=== PATIENT | female | born 1960 | race Caucasian/White ===

== ENCOUNTER 2017-07-23 11:13 | Emergency (ER) | payer OTHER ==
[~2017-07-23] VITALS: Ht 165.1 cm; Wt 56.5 kg
[2017-07-23 11:14] VITALS: BP 129/85; PULSE 80; RESP 24; TEMP 98.6; O2SAT 96
--- NOTE | 2017-07-23 12:34 | PD ---
HPI Chief Complaint: GI Complaint Time Seen by Provider: 12:13 Travel History International Travel<30 days: No Contact w/Intl Traveler<30days: No Traveled to known affect area: No History of Present Illness HPI This is a 56-year-old female who presents to the emergency department with GERD. She says she struggled with this for years and she recently moved to the area. She says every morning she wakes up and vomits and has explosive diarrhea. She says this is been getting worse over the past week because she's run out of her medications. She denies any abdominal pain. She denies any fevers or chills. Her symptoms are constant, worse in the morning, and alleviated by antinausea an antidiarrheal medication. PFSH Past Medical History Narrative Medical gerd Social History Alcohol Use: Yes Tobacco Use: Yes Allergies-Medications (Allergen,Severity, Reaction): Coded Allergies: No Known Allergies (Unverified , 07/23/17) Review of Systems Except as stated in HPI: all other systems reviewed are Neg Physical Exam Narrative GENERAL:Well appearing, no acute distress SKIN: Focused skin assessment warm and dry. HEAD: Atraumatic. Normocephalic. EYES: Pupils equal and round. No injection or drainage. ENT: Moist mucous membranes NECK: Trachea midline. CARDIOVASCULAR: Regular rate and rhythm. No murmur appreciated. RESPIRATORY: Clear to auscultation. Breath sounds equal bilaterally. GASTROINTESTINAL: Abdomen soft, non-tender, nondistended. MUSCULOSKELETAL: No obvious deformities. NEUROLOGICAL: Awake and alert. No obvious cranial nerve deficits. Moving all extremities. PSYCHIATRIC: Appropriate mood and affect; insight and judgment normal. Data Data Last Documented VS Vital Signs Date Time Temp Pulse Resp B/P (MAP) Pulse Ox O2 Delivery O2 Flow Rate FiO2 07/23/17 11:14 98.6 80 24 129/85 (100) 96 Room Air MDM Medical Decision Making Medical Screen Exam Complete: Yes Emergency Medical Condition: Yes Interpretation(s) Afebrile, no tachycardia, normotensive Differential Diagnosis Gastritis, GERD, gastroparesis, dehydration Narrative Course This is a 56 year old female who presents to the emergency department for increasing symptoms of which she describes as GERD. She says she vomits every morning and she has trouble eating. She has a very benign exam and has a drink at bedside which she's been able to drink. I offered her an IV and labs but she declined and said she really was just hoping to have something to manage her symptoms until she can get into her primary care physician later this week. I recommended an antacid and Zofran and I agreed to refill her metoclopramide prescription. I don't think she has an acute surgical emergency and I think she is safe for discharge. Diagnosis Primary Impression: Vomiting Qualified Codes: R11.2 - Nausea with vomiting, unspecified Patient Instructions: General Instructions Additional Instructions: If you develop severe or worsening abdominal pain, fever>100.4, persistent vomiting or inability to eat or drink return to the emergency department immediately. Follow up with your primary care physician in 1-2 days for a check-up. Med/Other Pt SpecificInfo: Prescription(s) given Scripts Ranitidine (Ranitidine) 150 Mg Tab 150 MG PO BID for Heartburn Management, #60 TAB 0 Refills Prov: Bridget Menjivar MD 07/23/17 Metoclopramide (Metoclopramide) 10 Mg Tab 10 MG PO TIDAC Y for NAUSEA, #20 TAB 0 Refills Prov: Bridget Menjivar MD 07/23/17 Ondansetron Odt (Zofran Odt) 4 Mg Tab 4 MG SL Q6HR Y for Nausea/Vomiting, #15 TAB 0 Refills Prov: Bridget Menjivar MD 07/23/17 Disposition: 01 DISCHARGE HOME Condition: Stable Bridget Menjivar MD Jul 23, 2017 12:33
[2017-07-23] MEDS ORDERED: RANI150T PO (12:40)
[2017-07-23] MEDS ORDERED: METO10TA PO (12:40)
[2017-07-23] MEDS ORDERED: ZOFR4TAB3 SL (12:40)
== END 2017-07-23 12:55 | disposition home or self-care (01) ==
LOC: NEPD 11:13
DX: R11.2 Nausea with vomiting, unspecified (principal); R19.7 Diarrhea, unspecified; Z72.0 Tobacco use; Z87.19 Personal history of other diseases of the digestive system
CPT/HCPCS: 99284

== ENCOUNTER 2017-10-16 09:30 | Emergency (ER) | payer OTHER ==
[~2017-10-16] VITALS: Ht 165.1 cm; Wt 55.0 kg
[~2017-10-16 09:30] MED LIST: METO10TA PO; RANI150T PO; ZOFR4TAB3 SL
[2017-10-16 09:31] VITALS: BP 127/89; PULSE 105; RESP 20; TEMP 98.5; O2SAT 97
[2017-10-16] MEDS ORDERED: PRIL20TA2 PO (10:03)
[2017-10-16] MEDS ORDERED: ZOFR4TAB PO (10:03)
[2017-10-16] MEDS ORDERED: REGL10TA5 PO (10:03)
--- NOTE | 2017-10-16 10:07 | PD ---
HPI . Reflux Chief Complaint: Medication Refill Request Time Seen by Provider: 10:00 Travel History International Travel<30 days: No Contact w/Intl Traveler<30days: No Traveled to known affect area: No History of Present Illness HPI This patient presents requesting refills for her reflux medicines. She reports that she has recently moved from [place]. She states that she has been treated in the past with Zofran, Reglan and Zantac. She states that the Zantac doesn't really seem to help so she has not been taking that. She states that she's been out of her medications for about 30 days. She cannot eat due to nausea and vomiting. She reports an approximately 10 pound weight loss in the last month. She states that she does have an appointment to see someone locally on October 28 but is hoping to get some medication to get her through until then. PFSH Past Medical History Diminished Hearing: No GERD: Yes Immunizations Current: Yes Tetanus Vaccination: > 5 Years Influenza Vaccination: No ?: Not Tubal Ligation: Yes Past Surgical History Other Surgery: Yes (SINUSES X 2, BREAST AUGMENTATION) Social History Alcohol Use: Yes Tobacco Use: Yes (1/2 PPD) Substance Use: Yes Allergies-Medications (Allergen,Severity, Reaction): Coded Allergies: No Known Allergies (Unverified Adverse Reaction, Unknown, 10/16/17) Reported Meds & Prescriptions Reported Meds & Active Scripts Active Prilosec (Omeprazole Magnesium) 20 Mg Tab 20 Mg PO DAILY Reglan (Metoclopramide HCl) 10 Mg Tab 10 Mg PO QID Zofran (Ondansetron HCl) 4 Mg Tab 4 Mg PO Q6HR PRN Metoclopramide (Metoclopramide HCl) 10 Mg Tab 10 Mg PO TIDAC PRN Zofran Odt (Ondansetron Odt) 4 Mg Tab 4 Mg SL Q6HR PRN Review of Systems Except as stated in HPI: all other systems reviewed are Neg Gastrointestinal: Positive: Nausea, Vomiting, Abdominal Pain Physical Exam Narrative GENERAL: Thin woman who does not appear to be in any acute distress. SKIN: warm/dry. Good color and turgor. HEAD: Normocephalic. Atraumatic. EYES: Pupils equal and round. No scleral icterus. No injection or drainage. ENT: No nasal bleeding or discharge. Mucous membranes pink and moist. NECK: Trachea midline. Full range of motion without pain.. CARDIOVASCULAR: Regular rate and rhythm. RESPIRATORY: No accessory muscle use. Clear to auscultation. Breath sounds equal bilaterally. GASTROINTESTINAL: Abdomen soft. Nontender. Bowel sounds present. Nondistended. MUSCULOSKELETAL: No obvious deformities. NEUROLOGICAL: Awake and alert. No obvious cranial nerve deficits. Motor grossly within normal limits. Normal speech. PSYCHIATRIC: Appropriate mood and affect; insight and judgment normal. Data Data Last Documented VS Vital Signs Date Time Temp Pulse Resp B/P (MAP) Pulse Ox O2 Delivery O2 Flow Rate FiO2 10/16/17 10:01 10/16/17 09:31 98.5 105 20 97 Room Air Orders Orders Ed Discharge Order (10/16/17 10:03) MDM Medical Decision Making Medical Screen Exam Complete: Yes Emergency Medical Condition: Yes Differential Diagnosis Differential diagnosis of abdominal pain includes but is not limited to gastritis, pancreatitis, hepatitis, gastroenteritis, gallbladder disease, constipation, urinary retention, UTI, peptic ulcer disease, diverticulitis or appendicitis Narrative Course This patient presents complaining with epigastric pain and reflux associated with nausea and vomiting. This is a chronic problem for her. She has recently moved here and does not have a local doctor yet. She is out of her usual medications. I have asked her if she has ever tried a proton pump inhibitor she does not believe that she has. She is willing to give this a try. I will discharge her with prescriptions for Zofran, Reglan and Prilosec. She is to keep her appointment with her new doctor on October 28. Diagnosis Primary Impression: GERD (gastroesophageal reflux disease) Qualified Codes: K21.9 - Gastro-esophageal reflux disease without esophagitis Patient Instructions: General Instructions, Gastroesophageal Reflux Disease (ED ) Departure Forms: Tests/Procedures Scripts Omeprazole Magnesium (Prilosec) 20 Mg Tab 20 MG PO DAILY for acid, #30 Prov: Avis Fragoso MD 10/16/17 Metoclopramide (Reglan) 10 Mg Tab 10 MG PO QID, #120 TAB 0 Refills Prov: Avis Fragoso MD 10/16/17 Ondansetron (Zofran) 4 Mg Tab 4 MG PO Q6HR Y for NAUSEA OR VOMITING, #30 TAB 0 Refills Prov: Avis Fragoso MD 10/16/17 Disposition: 01 DISCHARGE HOME Condition: Stable Avis Fragoso MD Oct 16, 2017 10:07
== END 2017-10-16 10:04 | disposition home or self-care (01) ==
LOC: NEPK 09:30 → NETRI 10:04
DX: K21.9 Gastro-esophageal reflux disease without esophagitis (principal); R11.2 Nausea with vomiting, unspecified; F17.200 Nicotine dependence, unspecified, uncomplicated; Z79.899 Other long term (current) drug therapy
CPT/HCPCS: 99284

== ENCOUNTER 2017-11-26 12:54 | Emergency (ER) | payer OTHER ==
[~2017-11-26 12:54] MED LIST changes: +PRIL20TA2 PO; -RANI150T PO; +REGL10TA5 PO; +ZOFR4TAB PO
[2017-11-26 12:55] VITALS: BP 130/82; PULSE 104; RESP 18; TEMP 98.7; O2SAT 99
--- NOTE | 2017-11-26 13:23 | PD ---
HPI Chief Complaint: Head Injury Time Seen by Provider: 13:07 Travel History International Travel<30 days: No Contact w/Intl Traveler<30days: No Traveled to known affect area: No History of Present Illness HPI This patient complains of head injury. 3 days ago her head was struck on the left brow by a door. She's had some headache since. She says at times her thoughts are jumbled. No LOC. No neck pain no memory loss. Severity is mild to moderate. No alleviating factors. No exacerbating factors. Duration 3 days PFSH Past Medical History Diminished Hearing: No GERD: Yes Immunizations Current: Yes Tubal Ligation: Yes Past Surgical History Other Surgery: Yes (SINUSES X 2, BREAST AUGMENTATION) Social History Alcohol Use: Yes Tobacco Use: Yes (/2 PPD) Substance Use: No Allergies-Medications (Allergen,Severity, Reaction): Coded Allergies: No Known Allergies (Unverified Adverse Reaction, Unknown, 10/16/17) Reported Meds & Prescriptions Reported Meds & Active Scripts Active No Active Prescriptions or Reported Medications Review of Systems General / Constitutional: No: Fever Eyes: No: Visual changes HENT: Positive: Headaches Cardiovascular: No: Chest Pain or Discomfort Respiratory: No: Shortness of Breath Gastrointestinal: No: Abdominal Pain Genitourinary: No: Dysuria Musculoskeletal: No: Pain Skin: No Rash Neurologic: Positive: Headache, No: Weakness Psychiatric: No: Depression Endocrine: No: Polydipsia Hematologic/Lymphatic: No: Easy Bruising Physical Exam Narrative GENERAL: Well-nourished, well-developed patient in no apparent distress. SKIN: Focused skin assessment reveals no rash and nodules. Skin is Warm and dry. HEAD: Atraumatic. Normocephalic. EYES: Pupils equal and round. No scleral icterus. No injection or drainage. ENT: No nasal bleeding or discharge. Mucous membranes pink and moist. NECK: Trachea midline. No JVD. No midline tenderness CARDIOVASCULAR: Regular rate and rhythm. No murmur appreciated. RESPIRATORY: No accessory muscle use. Clear to auscultation. Breath sounds equal bilaterally. GASTROINTESTINAL: Abdomen soft, non-tender, nondistended. Hepatic and splenic margins not palpable. MUSCULOSKELETAL: No obvious deformities. No clubbing. No cyanosis. No edema. NEUROLOGICAL: Awake and alert. No obvious cranial nerve deficits. Motor grossly within normal limits. Normal speech. PSYCHIATRIC: Appropriate mood and affect; insight and judgment normal. Data Data Last Documented VS Vital Signs Date Time Temp Pulse Resp B/P (MAP) Pulse Ox O2 Delivery O2 Flow Rate FiO2 11/26/17 12:55 98.7 104 18 130/82 (98) 99 Room Air Orders Orders Ct Brain W/O Iv Contrast(Rout) (11/26/17 ) MDM Medical Decision Making Medical Screen Exam Complete: Yes Emergency Medical Condition: Yes Medical Record Reviewed: Yes Differential Diagnosis Concussion, postconcussive symptoms, cephalgia Narrative Course I have reviewed the patient's electronic medical record. This patient is neurologically intact. There are no objective findings. I've ordered brain CT given her symptomatology after injury Brain CT was ordered but the patient got very impatient and decided to not wait. She signed out AGAINST MEDICAL ADVICE. She was advised to wait here to get the scan but she refused. Diagnosis Primary Impression: Head injury due to trauma Qualified Codes: S09.90XA - Unspecified injury of head, initial encounter Additional Impression: Headache Qualified Codes: G44.319 - Acute post-traumatic headache, not intractable Scripts No Active Prescriptions or Reported Meds Disposition: 07 AGAINST MEDICAL ADVICE Ajith Danielle MD Nov 26, 2017 13:23
[2017-11-27] MEDS ORDERED: BACT800T5 PO (16:26)
== END 2017-11-26 15:47 | disposition left against medical advice (07) ==
LOC: NEPD 12:54
DX: S09.90XA Unspecified injury of head, initial encounter (principal); G44.319 Acute post-traumatic headache, not intractable; F17.200 Nicotine dependence, unspecified, uncomplicated; W22.8XXA Striking against or struck by other objects, initial encounter
CPT/HCPCS: 99284

== ENCOUNTER 2017-11-27 12:12 | Inpatient (IN) | payer OTHER ==
[~2017-11-27] VITALS: Ht 165.1 cm; Wt 57.6 kg
[2017-11-27 12:18] VITALS: BP 123/85; PULSE 84; RESP 16; TEMP 97.9; O2SAT 94
[2017-11-27] MEDS ORDERED: NALOXONE HCL 0.4 MG/ML AMP ONE (12:25)
[2017-11-27 12:27] VITALS: BP 125/89; PULSE 81; RESP 14; O2SAT 89
[2017-11-27] MEDS ORDERED: SODIUM CHLORIDE 0.9% FLUSH 10 ML FLUSH IVF PRN (12:30)
[2017-11-27] MEDS ORDERED: NALOXONE HCL 2 MG/2 ML VIAL IV PUSH ONE (12:30)
--- NOTE | 2017-11-27 12:42 | PD ---
HPI Chief Complaint: Psychiatric Symptoms Time Seen by Provider: 12:18 Travel History International Travel<30 days: No Contact w/Intl Traveler<30days: No Traveled to known affect area: No History of Present Illness HPI Patient comes emergency Department under [place] act by police for alleged suicide attempt. Patient states that she snorted what she thought was heroin after drinking vodka and wine today in an attempted to kill herself. Patient states that she is feeling depressed and suicidal secondary to not being able to get her son out of her house. Reports her son is 24 years old and was told she would have to have him evicted to get him out. Patient states that she hides in her bedroom with the doors locked most of the day as she is scared of her son. Patient reports that her son is also gave her the heroin. Patient reports she tried cutting her left wrist last night using a kitchen knife without success. Patient denies anything making symptoms better. Reports having her son lives with her makes her symptoms worse. Denies any pain anywhere or radiation of pain. Patient is uncertain of her last tetanus shot. Patient's only complaint currently is feeling short of breath. Denies any chest pain, fevers, nausea, vomiting, abdominal pain, auditory or visual hallucinations, or previous suicide attempts. PFSH Past Medical History Diabetes: No Diminished Hearing: No GERD: Yes Immunizations Current: Yes Tetanus Vaccination: > 5 Years Influenza Vaccination: No ?: Not Tubal Ligation: Yes Past Surgical History Other Surgery: Yes (SINUSES X 2, BREAST AUGMENTATION) Social History Alcohol Use: Yes Tobacco Use: Yes (1/2 PPD) Substance Use: Yes (HEROIN) Allergies-Medications (Allergen,Severity, Reaction): Coded Allergies: No Known Allergies (Unverified Adverse Reaction, Unknown, 11/27/17) Reported Meds & Prescriptions Reported Meds & Active Scripts Active Bactrim DS (Sulfamethoxazole-Trimethoprim) 800-160 Mg Tab 1 Tab PO BID Review of Systems Except as stated in HPI: all other systems reviewed are Neg Physical Exam Narrative GENERAL: Well-developed, well nourished, in no acute distress, and non-ill appearing. Sleepy but answering questions appropriately. SKIN: Focused skin assessment warm and dry. Superficial and not repairable self -inflicted abrasions noted on left wrist. HEAD: Atraumatic. Normocephalic. EYES: Pupils equal and round. EOMI. No scleral icterus. No injection or drainage. ENT: No nasal bleeding or discharge. Mucous membranes pink and moist. NECK: Trachea midline. No JVD. Supple. No nuclear rigidity. CARDIOVASCULAR: Regular rate and rhythm. No murmur appreciated. RESPIRATORY: No accessory muscle use. No respiratory distress. Clear to auscultation. Breath sounds equal bilaterally. GASTROINTESTINAL: Abdomen soft, non-tender, nondistended, and no guarding. Hepatic and splenic margins not palpable. Normal bowel sounds 4. No pulsatile mass. MUSCULOSKELETAL: No obvious deformities. No clubbing. No cyanosis. No edema. Full range of motion. NEUROLOGICAL: Awake and alert. No obvious cranial nerve deficits. Motor grossly within normal limits. Normal speech. PSYCHIATRIC: Appropriate mood and affect; insight and judgment normal. Data Data Last Documented VS Vital Signs Date Time Temp Pulse Resp B/P (MAP) Pulse Ox O2 Delivery O2 Flow Rate FiO2 11/27/17 13:41 89 16 105/65 (78) 97 Nasal Cannula 2.00 11/27/17 12:18 97.9 Orders Orders Complete Blood Count With Diff (11/27/17 12:23) Comprehensive Metabolic Panel (11/27/17 12:23) Prothrombin Time / Inr (Pt) (11/27/17 12:23) Act Partial Throm Time (Ptt) (11/27/17 12:23) Urinalysis - C+S If Indicated (11/27/17 12:23) Chest, Single Ap (11/27/17 12:23) Iv Access Insert/Monitor (11/27/17 12:23) Ecg Monitoring (11/27/17 12:23) Oximetry (11/27/17 12:23) Oxygen Administration (11/27/17 12:23) Psych Screen (11/27/17 12:23) Naloxone Inj (Narcan Inj) (11/27/17 12:30) Sodium Chloride 0.9% Flush (Ns Flush) (11/27/17 12:30) Drug Screen, Random Urine (11/27/17 12:23) Alcohol (Ethanol) (11/27/17 12:23) Salicylates (Aspirin) (11/27/17 12:23) Tylenol (Acetaminophen) (11/27/17 12:23) Naloxone Inj (Narcan Inj) (11/27/17 12:25) Wound Care (11/27/17 12:33) Tetanus/Diphtheria Tox Adult (Tetanus/Di (11/27/17 12:45) Sodium Chlor 0.9% 1000 Ml Inj (Ns 1000 M (11/27/17 13:30) Urine Culture (11/27/17 15:30) Sulfamet-Trimeth Ds 800-160 Mg (Bactrim (11/27/17 16:30) Labs Laboratory Tests Test 11/27/17 12:30 11/27/17 15:30 White Blood Count 6.6 TH/MM3 Red Blood Count 4.31 MIL/MM3 Hemoglobin 14.2 GM/DL Hematocrit 42.6 % Mean Corpuscular Volume 99.0 FL Mean Corpuscular Hemoglobin 33.1 PG Mean Corpuscular Hemoglobin Concent 33.4 % Red Cell Distribution Width 14.0 % Platelet Count 183 TH/MM3 Mean Platelet Volume 9.3 FL Neutrophils (%) (Auto) 38.6 % Lymphocytes (%) (Auto) 45.9 % Monocytes (%) (Auto) 11.2 % Eosinophils (%) (Auto) 3.7 % Basophils (%) (Auto) 0.6 % Neutrophils # (Auto) 2.6 TH/MM3 Lymphocytes # (Auto) 3.0 TH/MM3 Monocytes # (Auto) 0.7 TH/MM3 Eosinophils # (Auto) 0.2 TH/MM3 Basophils # (Auto) 0.0 TH/MM3 CBC Comment DIFF FINAL Differential Comment Prothrombin Time 10.1 SEC Prothromb Time International Ratio 1.0 RATIO Activated Partial Thromboplast Time 21.7 SEC Blood Urea Nitrogen 11 MG/DL Creatinine 0.48 MG/DL Random Glucose 98 MG/DL Total Protein 7.2 GM/DL Albumin 3.8 GM/DL Calcium Level 8.3 MG/DL Alkaline Phosphatase 85 U/L Aspartate Amino Transf (AST/SGOT) 25 U/L Alanine Aminotransferase (ALT/SGPT) 22 U/L Total Bilirubin 0.3 MG/DL Sodium Level 143 MEQ/L Potassium Level 3.9 MEQ/L Chloride Level 105 MEQ/L Carbon Dioxide Level 21.4 MEQ/L Anion Gap 17 MEQ/L Estimat Glomerular Filtration Rate 134 ML/MIN Salicylates Level 3.8 MG/DL Acetaminophen Level LESS THAN 2.0 MCG/ML Ethyl Alcohol Level 259 MG/DL Urine Color YELLOW Urine Turbidity HAZY Urine pH 6.0 Urine Specific [place] 1.020 Urine Protein TRACE mg/dL Urine Glucose (UA) NEG mg/dL Urine Ketones 10 mg/dL Urine Occult Blood NEG Urine Nitrite NEG Urine Bilirubin NEG Urine Urobilinogen LESS THAN 2.0 MG/DL Urine Leukocyte Esterase LARGE Urine RBC 1 /hpf Urine WBC 4 /hpf Urine Squamous Epithelial Cells 2 /hpf Urine Bacteria MOD /hpf Urine Hyaline Casts 1 /lpf Urine Granular Casts 6 /lpf Urine Mucus FEW /lpf Microscopic Urinalysis Comment CULTURE INDICATED Urine Opiates Screen POS Urine Barbiturates Screen NEG Urine Amphetamines Screen NEG Urine Benzodiazepines Screen NEG Urine Cocaine Screen NEG Urine Cannabinoids Screen NEG MDM Medical Decision Making Medical Screen Exam Complete: Yes Emergency Medical Condition: Yes Differential Diagnosis Intentional overdose, accidental overdose, suicidal, homicidal, depression, metabolic disturbance, pneumonia Narrative Course Patient was seen and examined. IV was established. Patient was placed on cardiac monitoring and O2 secondary to patient's O2 sat dropping. Patient was given Narcan IV, which causes patient to become fully awake and alert as well as alleviating her sensation of feeling short of breath. Initial laboratory radiological studies were ordered. Psych consult was placed as well. Discussed patient with Dr. Ghosh, who saw and evaluated the patient who is in agreement with plan of care. Patient was seen and examined. Labs were obtained and reviewed. Patient was monitored for 4 hours with no additional need for Narcan. Patient was started on Bactrim for UTI. Patient medically cleared for further treatment and evaluation by psych. Final disposition per psych. Diagnosis Primary Impression: Intentional heroin overdose Qualified Codes: T40.1X2A - Poisoning by heroin, intentional self-harm, initial encounter Additional Impressions: Alcohol intoxication Qualified Codes: F10.920 - Alcohol use, unspecified with intoxication, uncomplicated Suicidal overdose Qualified Codes: T50.902A - Poisoning by unspecified drugs, medicaments and biological substances, intentional self-harm, initial encounter Abrasion UTI (urinary tract infection) Qualified Codes: N39.0 - Urinary tract infection, site not specified Scripts Sulfamethoxazole-Trimethoprim (Bactrim DS) 800-160 Mg Tab 1 TAB PO BID for Infection, #14 TAB 0 Refills Prov: Howard Ghosh MD 11/27/17 Condition: Stable Paco Beckman Nov 27, 2017 12:42
[2017-11-27 12:45] LABS: AUTOMATED NEUTROPHIL # 2.6 TH/MM3 (1.8-7.7); BASOPHIL % 0.6 % (0.0-2.0); EOSINOPHIL # 0.2 TH/MM3 (0-0.4); EOSINOPHIL % 3.7 % (0.0-4.0); HEMATOCRIT 42.6 % (35.0-46.0); HEMOGLOBIN 14.2 GM/DL (11.6-15.3); LYMPH % 45.9 % (9.0-44.0); MEAN CORPUSCULAR HEMOGLOBIN 33.1 PG (27.0-34.0); MEAN CORPUSCULAR HGB CONC 33.4 % (32.0-36.0); MEAN PLATELET VOLUME 9.3 FL (7.0-11.0); MONO % 11.2 % (0.0-8.0); MONOCYTE # 0.7 TH/MM3 (0-0.9); NEUT % 38.6 % (16.0-70.0); PLATELET COUNT 183 TH/MM3 (150-450); RED BLOOD COUNT 4.31 MIL/MM3 (4.00-5.30); WHITE BLOOD COUNT 6.6 TH/MM3 (4.0-11.0)
[2017-11-27] MEDS ORDERED: TETANUS/DIPHTHERIA TOXOID ADULT 0.5 ML VIAL IM ONE (12:45)
[2017-11-27 12:55] LABS: PROTHROMBIN TIME - PATIENT 10.1 SEC (9.8-11.6)
[2017-11-27 13:08] LABS: ACETAMINOPHEN LESS THAN 2.0 MCG/ML (10.0-30.0); ALBUMIN 3.8 GM/DL (3.4-5.0); ALT (GPT) 22 U/L (10-53); AST (GOT) 25 U/L (15-37); BICARBONATE 21.4 MEQ/L (21.0-32.0); BLOOD UREA NITROGEN 11 MG/DL (7-18); CALCIUM 8.3 MG/DL (8.5-10.1); CHLORIDE 105 MEQ/L (98-107); CREATININE 0.48 MG/DL (0.50-1.00); GLOMERULAR FILTRATION RATE 134 ML/MIN (>89); GLUCOSE,RANDOM 98 MG/DL (74-106); SODIUM (NA) 143 MEQ/L (136-145)
[2017-11-27 13:10] LABS: ALKALINE PHOSPHATASE 85 U/L (45-117); TOTAL BILIRUBIN ADULT 0.3 MG/DL (0.2-1.0); TOTAL PROTEIN 7.2 GM/DL (6.4-8.2)
--- NOTE | 2017-11-27 13:18 | RADRPT ---
EXAM DATE/TIME: 11/27/2017 12:41 [facility] COMPARISON: No previous studies available for comparison. INDICATIONS : Shortness of breath began today, no chest pain MEDICAL HISTORY : None. SURGICAL HISTORY : None. ENCOUNTER: Initial ACUITY: 1 day PAIN SCORE: 0/10 LOCATION: Bilateral chest FINDINGS: A single view of the chest demonstrates the lungs to be symmetrically aerated without evidence of mas s, infiltrate or effusion. The cardiomediastinal contours are unremarkable. Osseous structures are intact. CONCLUSION: No acute disease. Amrit Chirinos MD on November 27, 2017 at 13:17 Board Certified Radiologist. This report was verified electronically.
[2017-11-27] MEDS ORDERED: SODIUM CHLOR 0.9% 1000 ML INJ 1,000 ML IV ONE (13:30)
[2017-11-27 13:41] VITALS: BP 105/65; PULSE 89; RESP 16; O2SAT 97
--- NOTE | 2017-11-27 14:20 | PD ---
Data Data Last Documented VS Vital Signs Date Time Temp Pulse Resp B/P (MAP) Pulse Ox O2 Delivery O2 Flow Rate FiO2 11/27/17 13:41 89 16 105/65 (78) 97 Nasal Cannula 2.00 11/27/17 12:18 97.9 Orders Orders Complete Blood Count With Diff (11/27/17 12:23) Comprehensive Metabolic Panel (11/27/17 12:23) Prothrombin Time / Inr (Pt) (11/27/17 12:23) Act Partial Throm Time (Ptt) (11/27/17 12:23) Urinalysis - C+S If Indicated (11/27/17 12:23) Chest, Single Ap (11/27/17 12:23) Iv Access Insert/Monitor (11/27/17 12:23) Ecg Monitoring (11/27/17 12:23) Oximetry (11/27/17 12:23) Oxygen Administration (11/27/17 12:23) Psych Screen (11/27/17 12:23) Naloxone Inj (Narcan Inj) (11/27/17 12:30) Sodium Chloride 0.9% Flush (Ns Flush) (11/27/17 12:30) Drug Screen, Random Urine (11/27/17 12:23) Alcohol (Ethanol) (11/27/17 12:23) Salicylates (Aspirin) (11/27/17 12:23) Tylenol (Acetaminophen) (11/27/17 12:23) Naloxone Inj (Narcan Inj) (11/27/17 12:25) Wound Care (11/27/17 12:33) Tetanus/Diphtheria Tox Adult (Tetanus/Di (11/27/17 12:45) Sodium Chlor 0.9% 1000 Ml Inj (Ns 1000 M (11/27/17 13:30) Urine Culture (11/27/17 15:30) Sulfamet-Trimeth Ds 800-160 Mg (Bactrim (11/27/17 16:30) Labs Laboratory Tests Test 11/27/17 12:30 11/27/17 15:30 White Blood Count 6.6 TH/MM3 Red Blood Count 4.31 MIL/MM3 Hemoglobin 14.2 GM/DL Hematocrit 42.6 % Mean Corpuscular Volume 99.0 FL Mean Corpuscular Hemoglobin 33.1 PG Mean Corpuscular Hemoglobin Concent 33.4 % Red Cell Distribution Width 14.0 % Platelet Count 183 TH/MM3 Mean Platelet Volume 9.3 FL Neutrophils (%) (Auto) 38.6 % Lymphocytes (%) (Auto) 45.9 % Monocytes (%) (Auto) 11.2 % Eosinophils (%) (Auto) 3.7 % Basophils (%) (Auto) 0.6 % Neutrophils # (Auto) 2.6 TH/MM3 Lymphocytes # (Auto) 3.0 TH/MM3 Monocytes # (Auto) 0.7 TH/MM3 Eosinophils # (Auto) 0.2 TH/MM3 Basophils # (Auto) 0.0 TH/MM3 CBC Comment DIFF FINAL Differential Comment Prothrombin Time 10.1 SEC Prothromb Time International Ratio 1.0 RATIO Activated Partial Thromboplast Time 21.7 SEC Blood Urea Nitrogen 11 MG/DL Creatinine 0.48 MG/DL Random Glucose 98 MG/DL Total Protein 7.2 GM/DL Albumin 3.8 GM/DL Calcium Level 8.3 MG/DL Alkaline Phosphatase 85 U/L Aspartate Amino Transf (AST/SGOT) 25 U/L Alanine Aminotransferase (ALT/SGPT) 22 U/L Total Bilirubin 0.3 MG/DL Sodium Level 143 MEQ/L Potassium Level 3.9 MEQ/L Chloride Level 105 MEQ/L Carbon Dioxide Level 21.4 MEQ/L Anion Gap 17 MEQ/L Estimat Glomerular Filtration Rate 134 ML/MIN Salicylates Level 3.8 MG/DL Acetaminophen Level LESS THAN 2.0 MCG/ML Ethyl Alcohol Level 259 MG/DL Urine Color YELLOW Urine Turbidity HAZY Urine pH 6.0 Urine Specific [place] 1.020 Urine Protein TRACE mg/dL Urine Glucose (UA) NEG mg/dL Urine Ketones 10 mg/dL Urine Occult Blood NEG Urine Nitrite NEG Urine Bilirubin NEG Urine Urobilinogen LESS THAN 2.0 MG/DL Urine Leukocyte Esterase LARGE Urine RBC 1 /hpf Urine WBC 4 /hpf Urine Squamous Epithelial Cells 2 /hpf Urine Bacteria MOD /hpf Urine Hyaline Casts 1 /lpf Urine Granular Casts 6 /lpf Urine Mucus FEW /lpf Microscopic Urinalysis Comment CULTURE INDICATED Urine Opiates Screen POS Urine Barbiturates Screen NEG Urine Amphetamines Screen NEG Urine Benzodiazepines Screen NEG Urine Cocaine Screen NEG Urine Cannabinoids Screen NEG MDM Medical Record Reviewed: Yes Supervised Visit with KATTY: Yes Narrative Course I, Dr. Ghosh, have reviewed the advance practice practitioner's documentation and am in agreement, met with the patient face to face, made the diagnosis, and the medical decision making was done by me. *My assessment and Findings: CBC & BMP Diagram 11/27/17 12:30 Total Protein 7.2, Albumin 3.8, Calcium Level 8.3 L, Alkaline Phosphatase 85, Aspartate Amino Transf (AST/SGOT) 25, Alanine Aminotransferase (ALT/SGPT) 22, Total Bilirubin 0.3 Patient has been monitored for 4 hours and is hemodynamically normal with no evidence of opioid toxidrome for the last 90 minutes or so. Patient is medically clear for psychiatry evaluation. Scripts Sulfamethoxazole-Trimethoprim (Bactrim DS) 800-160 Mg Tab 1 TAB PO BID for Infection, #14 TAB 0 Refills Prov: Howard Ghosh MD 11/27/17 Howard Ghosh MD Nov 27, 2017 14:20
[2017-11-27 16:21] LABS: BACTERIA, URINE MOD /hpf; BILIRUBIN, URINE NEG (NEG); BLOOD, URINE NEG (NEG); GLUCOSE,URINE NEG (NEG); HYALINE CAST, URINE 1 /lpf (RARE); KETONE, URINE 10 mg/dL (NEG); MUCUS URINE FEW /lpf (OCC); NITRITE,URINE NEG (NEG); SQUAMOUS EPITHELIAL CELL URINE 2 /hpf (0-5); URINE COLOR YELLOW (YELLW/STRAW); URINE LEUKOCYTE ESTERASE LARGE (NEG)
[2017-11-27] MEDS ORDERED: BACT800T5 PO (16:26)
[2017-11-27] MEDS ORDERED: SULFAMETHOXAZOLE-TRIMETHOPRIM DS 800-160 MG TAB PO ONE (16:30)
[2017-11-27 17:31] VITALS: BP 123/63; PULSE 75; RESP 18; TEMP 97.7; O2SAT 96
[2017-11-27] MEDS: LORazepam 2 MG TAB PO PRN ×2 (20:13→21:43)
[2017-11-27] MEDS ORDERED: FLUMAZENIL 0.5 MG/5 ML VIAL IV PUSH PRN (20:15)
[2017-11-27] MEDS ORDERED: LORazepam 2 MG/ML VIAL IV PUSH PRN ×4 (20:15)
[2017-11-27 21:30] VITALS: BP 128/74; PULSE 90; RESP 17; TEMP 98; O2SAT 94
[2017-11-27] MEDS ORDERED: ALUMINUM/MAGNESIUM/SIMETH 30 ML CUP PO PRN (21:45)
[2017-11-27] MEDS ORDERED: hydrOXYzine HCL 50 MG TAB PO PRN (21:45)
[2017-11-27] MEDS ORDERED: MAGNESIUM HYDROXIDE SUSP 30 ML CUP PO PRN (21:45)
[2017-11-27] MEDS: ACETAMINOPHEN 325 MG TAB PO PRN (23:32)
[2017-11-27] MEDS: LORazepam 1 MG TAB PO PRN (23:32)
[2017-11-28 05:43] VITALS: BP 134/76; PULSE 86; RESP 18; TEMP 98.4; O2SAT 95
[2017-11-28 06:22] LABS: BICARBONATE 25.9 MEQ/L (21.0-32.0); BLOOD UREA NITROGEN 7 MG/DL (7-18); CALCIUM 8.1 MG/DL (8.5-10.1); CHLORIDE 102 MEQ/L (98-107); CHOLESTEROL 162 MG/DL (120-200); CREATININE 0.41 MG/DL (0.50-1.00); GLOMERULAR FILTRATION RATE 160 ML/MIN (>89); GLUCOSE,RANDOM 80 MG/DL (74-106); SODIUM (NA) 136 MEQ/L (136-145)
[2017-11-28 06:25] LABS: CHOLESTEROL/ HDL RATIO 1.74 RATIO; HDL CHOLESTEROL 92.6 MG/DL (40.0-60.0); LDL CHOLESTEROL 57 MG/DL (0-99); TRIGLYCERIDES 61 MG/DL (42-150)
[2017-11-28] MEDS: LORazepam 1 MG TAB PO PRN (09:26)
[2017-11-28] MEDS ORDERED: RANI150T PO (10:04)
[2017-11-28] MEDS: PANTOPRAZOLE SOD 20 MG DELAYED RELEASE TAB PO SCH (12:56)
[2017-11-28] MEDS: SERTRALINE HCL 50 MG TAB PO SCH (12:56)
[2017-11-28] MEDS: NICOTINE 21 MG/24 HR PATCH T-DERMAL SCH (13:07)
[2017-11-28] MEDS: SULFAMETHOXAZOLE-TRIMETHOPRIM DS 800-160 MG TAB PO SCH ×2 (13:13→20:29)
[2017-11-28] MEDS ORDERED: METOCLOPRAMIDE HCL 10 MG TAB PO PRN (13:45)
--- NOTE | 2017-11-28 15:48 | HHI.HP ---
Provisional Diagnosis Admission Date Nov 27, 2017 at 21:29 [place] I. Adjustment disorder with depressed mood Certification of Person's Competence To Provide Express and Informed Consent I have personally examined Sushant Khoury , a person being served at [facility] on, Nov 28, 2017 15:37. Express and informed consent means consent voluntarily given in writing, by a competent person, after sufficient explanation and disclosure of the subject matter involved to enable the person to make a knowing and willful decision without any element of force, fraud, deceit, duress, or other form of constraint or coercion. This person is 18 years of age or older, is not now known to be incompetent to consent to treatment with a guardian advocate, and does not have a health care surrogate or proxy currently making medical treatment decisions. I have found this person to be one of the following: [x] Competent to provide express and informed consent, as defined above, for voluntary admission to this facility and is competent to provide express and informed consent for treatment. He/she has the consistent capacity to make well reasoned, willful, and knowing decisions concerning his or her medical or mental health treatment. The person fully and consistently understands the purpose of the admission for examination/placement and is fully capable of personally exercising all rights assured [place] [] Incompetent to provide express and informed consent to voluntary admission, and this is incompetent to provide express and informed consent to treatment. The person must be transferred to involuntary status and a petition for a guardian advocate filed with the Circuit Court. [] Refusing to provide express and informed consent to voluntary admission but is competent to provide express and informed consent for treatment. The person must be discharged or transferred to involuntary status. Form shall be completed within 24 hours of a person's arrival at the receiving facility and filed in the clinical record of each person: 1. Admitted on a voluntary basis 2. Permitted to provide express and informed consent to his/her own treatment 3. Allowed to transfer from involuntary to voluntary status 4. Prior to permitting a person to consent to his or her own treatment after having been previously found incompetent to consent to treatment. History of Present Illness Capacity: Has Capacity HPI Patient is a 57-year-old woman, , domiciled with son, recently unemployed, with past psychiatric history of depression, no prior psychiatric hospitalizations, prior suicide attempt or self-injurious behavior, with alcohol use disorder with history of daily drinking since the age of [age] years old, who was brought in under Lafleur act for recent suicide attempt via cutting wrists with a knife and using heroin along with alcohol use in the context of worsening depression and recent psychosocial stressors. Patient was found sitting in hospital bed, cooperative with interview. Patient states that she has been under a lot of stress recently have included losing her job recently after calling in sick several times, having relationship discord with her son who is currently living with her and is refusing to leave her home, financial difficulties and continued alcohol use. Patient reports having decreased sleep lately, with urges and appetite, energy or concentration but reports feeling depressed for the past couple of weeks along with feeling helpless. Patient denies feeling helpless but also is having feelings of guilt "what I make my father to go through". She reports having had suicidal ideation recently reported that a few days ago she had tried to cut herself with a knife on her left wrist and ended up aborting the suicide and taxing her father when she had been trying to do. She also mentions that prior to her hospitalization she had used heroin for the first time along with alcohol use and attempt to end her life. Patient also reports having difficulty with her son which she states she is mostly at home drunk and is refusing to leave her home. Currently she states feeling "confused and scared", denies any suicidal ideations at this time denies any HI, AVH or delusions. Family psychiatric history: Sister with anxiety, no suicides in the family Past psychiatric history: Reports previous psychiatric diagnoses of depression, no prior psychiatric hospitalizations, suicide attempts or self-injurious behavior. Patient denies any history of abuse. Patient reports previous medication trials include Zoloft in the past couple of years last time use was more than a year ago. Substance use history: Alcohol use since age of [age] years old, drinking daily more than one bottle of wine last time she drank was prior hospitalizations which she drank on. Patient reports having previous rehabilitation programs 2-1 /2 years ago as well as prior detox. Patient reports having used heroin for the first time prior to her admission this time. Patient denies use of any other illicit drugs. Past medical history,: Denies Allergies: NKDA Social history: having 2 adult children, domiciled with son, reports having lost her job recently, highest education is 12th grade. No history, no access to firearms. No specific denominational affiliation. Legal history: Reports being arrested for battery 1 week ago. Review of Systems Except as stated in HPI: all other systems reviewed are Neg Past Psych History Psychological trauma history Denies Violence risk - others (6 mos) Low Violence risk - self (6 mos) Elevated due to recent suicide attempts, worsening depression and alcohol use disorder Substance Abuse History Drugs/Alcohol past 12 months Alcohol use since age of [age] years old, drinking daily more than one bottle of wine last time she drank was prior hospitalizations which she drank on. Patient reports having previous rehabilitation programs 2-1/2 years ago as well as prior detox. Patient reports having used heroin for the first time prior to her admission this time. Patient denies use of any other illicit drugs. Past Family Social History Coded Allergies: No Known Allergies (Unverified Adverse Reaction, Unknown, 11/27/17) Active Scripts Sulfamethoxazole-Trimethoprim (Bactrim DS) 800-160 Mg Tab, 1 TAB PO BID for Infection, #14 TAB 0 Refills Prov:Howard Ghosh MD 11/27/17 Reported Medications Ranitidine (Ranitidine) 150 Mg Tab, 150 MG PO BID for Heartburn Management, #60 TAB 0 Refills 11/28/17 Discontinued Scripts Omeprazole Magnesium (Prilosec) 20 Mg Tab, 20 MG PO DAILY for acid, #30 Prov:Avis Fragoso MD 10/16/17 Metoclopramide (Reglan) 10 Mg Tab, 10 MG PO QID, #120 TAB 0 Refills Prov:Avis Fragoso MD 10/16/17 Ondansetron (Zofran) 4 Mg Tab, 4 MG PO Q6HR Y for NAUSEA OR VOMITING, #30 TAB 0 Refills Prov:Avis Fragoso MD 10/16/17 Metoclopramide (Metoclopramide) 10 Mg Tab, 10 MG PO TIDAC Y for NAUSEA, #20 TAB 0 Refills Prov:Bridget Menjivar MD 07/23/17 Ondansetron Odt (Zofran Odt) 4 Mg Tab, 4 MG SL Q6HR Y for Nausea/Vomiting, #15 TAB 0 Refills Prov:Bridget Menjivar MD 07/23/17 Current Medications Medications (Trade) Dose Ordered Sig/Eloisa Route Start Time Stop Time Status Last Admin (NS Flush) 2 ml UNSCH PRN IVF 11/27/17 12:30 (Romazicon Inj) 0.2 mg Q1M PRN IV PUSH 11/27/17 20:15 (Ativan) 1 mg Q4H PRN PO 11/27/17 20:15 11/28/17 09:26 (Ativan Inj) 1 mg Q4H PRN IV PUSH 11/27/17 20:15 (Ativan) 2 mg Q2H PRN PO 11/27/17 20:15 11/27/17 21:43 (Ativan Inj) 2 mg Q2H PRN IV PUSH 11/27/17 20:15 (Ativan Inj) 2 mg Q1H PRN IV PUSH 11/27/17 20:15 (Ativan Inj) 2 mg Q15M PRN IV PUSH 11/27/17 20:15 (Atarax) 50 mg Q6H PRN PO 11/27/17 21:45 (Desyrel) 50 mg HS PRN PO 11/27/17 21:45 (Tylenol) 650 mg Q4H PRN PO 11/27/17 21:45 11/27/17 23:32 (Milk Of Magnesia Liq) 30 ml DAILY PRN PO 11/27/17 21:45 (Mag-Al Plus Susp Liq) 30 ml Q6H PRN PO 11/27/17 21:45 (Habitrol 21 Mg Patch.24 Hr) 1 patch DAILY T-DERMAL 11/28/17 09:00 11/28/17 13:07 Miscellaneous Information 1 HS T-DERMAL 11/28/17 21:00 (Zoloft) 50 mg DAILY PO 11/28/17 11:00 11/28/17 12:56 (Protonix) 20 mg DAILY PO 11/28/17 11:15 11/28/17 12:56 (Bactrim Ds 800-160 Mg) 1 tab BID PO 11/28/17 11:15 11/28/17 13:13 (Zofran Odt) 4 mg Q6H PRN PO 11/28/17 13:45 (Reglan) 10 mg ACHS PRN PO 11/28/17 13:45 Family Psych History Sister with anxiety, no suicides in the family Social History having 2 adult children, domiciled with son, reports having lost her job recently, highest education is 12th grade. No history, no access to firearms. No specific denominational affiliation. Legal history: Reports being arrested for battery 1 week ago. Patient's Strengths (min. 2) Verbal and communicative Physical Exam Patient not noted to be in acute distress, no gross motor abnormalities, no tremor, signs of withdrawal, or EPS, no noted psychomotor retardation or agitation. Vital Signs Vital Signs Date Time Temp Pulse Resp B/P (MAP) Pulse Ox O2 Delivery O2 Flow Rate FiO2 11/28/17 05:43 98.4 86 18 134/76 (95) 95 11/27/17 17:31 Room Air 11/27/17 13:41 2.00 I/O 11/28/17 11/28/17 11/29/17 08:00 16:00 00:00 Intake Total 0 ml Balance 0 ml Lab Results Labs reviewed Test 11/28/17 04:35 Blood Urea Nitrogen 7 MG/DL Creatinine 0.41 MG/DL Random Glucose 80 MG/DL Calcium Level 8.1 MG/DL Sodium Level 136 MEQ/L Potassium Level 3.7 MEQ/L Chloride Level 102 MEQ/L Carbon Dioxide Level 25.9 MEQ/L Anion Gap 8 MEQ/L Estimat Glomerular Filtration Rate 160 ML/MIN Triglycerides Level 61 MG/DL Cholesterol Level 162 MG/DL LDL Cholesterol 57 MG/DL HDL Cholesterol 92.6 MG/DL Cholesterol/HDL Ratio 1.74 RATIO Date/Time Source Procedure Growth Status 11/27/17 15:30 Urine Random Urine Urine Culture - Preliminary IMMATURE GROWTH - REINCUBATE Resulted Mental Status Examination Appearance: Disheveled Consciousness: Alert Orientation: Person, Place, Date/Time Motor Activity: Normal gait Speech: Unremarkable Language: Adequate Fund of Knowledge: Adequate Attention and Concentration: Adequate Memory: Unremarkable Mood: Sad, Anxious Affect: Sad, Anxious Thought Process & Associations: Linear Thought Content: Appropriate Hallucination Type: None Delusion Type: None Suicidal Ideation: Yes Suicidal Plan: Yes Suicidal Intention: Yes Homicidal Ideation: No Homicidal Plan: No Homicidal Intention: No Insight: Fair Judgment: Impulsive Assessment & Plan Problem List: (1) Adjustment disorder with depressed mood ICD Codes: F43.21 - Adjustment disorder with depressed mood (2) Alcohol use disorder ICD Codes: F10.99 - Alcohol use, unspecified with unspecified alcohol-induced disorder Assessment & Plan Estimated LOS: 5-7 days. Patient is a 57-year-old woman who carries a diagnosis of depression, alcohol use disorder, with recent worsening depressive symptoms along with previous suicide attempts recently was brought in by her under Lafleur act for the same in the context of psychosocial stressors. We'll start CIWA protocol for withdrawal. Start sertraline 50 mg by mouth daily with upper titration as needed for depression. Consult with hospitalist pending. Recommendations as per primary medical team. Collateral information pending. Discharge planning in progress patient at this time will sign voluntary admission Discharge Planning A to return back to her residence when psychiatrically stable Gamaliel Castro MD Nov 28, 2017 15:48
[2017-11-28 16:03] LABS: HEMOGLOBIN A1C 5.7 % (4.3-6.0)
[2017-11-28 18:00] VITALS: BP 120/69; PULSE 71; RESP 16; TEMP 97.9; O2SAT 96
--- NOTE | 2017-11-28 20:18 | PD.CONS ---
HPI Service [facility] Consult Requested By Psych Reason for Consult UTI and Alcoholism Primary Care Physician Unknown Diagnoses: History of Present Illness 57F with h/o depression and alcoholism was admitted under Lafleur Act for worsening of depression and multiple stressors. She was found on routine labs to have a UTI, and admits that she has felt queezy lately, but denies obvious dysuria. She is not having any signs of alcohol withdrawal today. Review of Systems Constitutional: DENIES: Diaphoretic episodes, Fatigue, Fever Respiratory: DENIES: Apneas, Cough Gastrointestinal: DENIES: Constipation, Diarrhea, Nausea, Vomiting Genitourinary: COMPLAINS OF: Urinary frequency, DENIES: Urinary incontinence, Hematuria, Dysuria Musculoskeletal: DENIES: Joint pain, Muscle aches, Stiffness, Joint Swelling Neurologic: DENIES: Abnormal gait, Headache, Seizures Psychiatric: COMPLAINS OF: Depression, DENIES: Anxiety, Confusion Past Family Social History Allergies: Coded Allergies: No Known Allergies (Unverified Adverse Reaction, Unknown, 11/27/17) Social History alcoholism and tobacco abuse Physical Exam Vital Signs Vital Signs Date Time Temp Pulse Resp B/P (MAP) Pulse Ox O2 Delivery O2 Flow Rate FiO2 11/28/17 18:00 97.9 71 16 120/69 (86) 96 11/28/17 05:43 98.4 86 18 134/76 (95) 95 11/27/17 21:44 11/27/17 21:30 98.0 90 17 128/74 (92) 94 Physical Exam GENERAL: This is a well-nourished, well-developed patient, in no apparent distress. SKIN: No rashes, ecchymoses or lesions. Cool and dry. HEAD: Atraumatic. Normocephalic. No temporal or scalp tenderness. EYES: Pupils equal round and reactive. Extraocular motions intact. No scleral icterus. No injection or drainage. ENT: Nose without bleeding, purulent drainage or septal hematoma. Throat without erythema, tonsillar hypertrophy or exudate. Uvula midline. Airway patent. NECK: Trachea midline. No JVD or lymphadenopathy. Supple, nontender, no meningeal signs. CARDIOVASCULAR: Regular rate and rhythm without murmurs, gallops, or rubs. RESPIRATORY: Clear to auscultation. Breath sounds equal bilaterally. No wheezes , rales, or rhonchi. GASTROINTESTINAL: Abdomen soft, non-tender, nondistended. No hepato-splenomegaly , or palpable masses. No guarding. MUSCULOSKELETAL: Extremities without clubbing, cyanosis, or edema. No joint tenderness, effusion, or edema noted. No calf tenderness. Negative Homans sign bilaterally. NEUROLOGICAL: Awake and alert. Cranial nerves II through XII intact. Motor and sensory grossly within normal limits. Five out of 5 muscle strength in all muscle groups. Normal speech. Laboratory Laboratory Tests Test 11/28/17 04:35 Blood Urea Nitrogen 7 Creatinine 0.41 Random Glucose 80 Calcium Level 8.1 Sodium Level 136 Potassium Level 3.7 Chloride Level 102 Carbon Dioxide Level 25.9 Anion Gap 8 Estimat Glomerular Filtration Rate 160 Hemoglobin A1c 5.7 Triglycerides Level 61 Cholesterol Level 162 LDL Cholesterol 57 HDL Cholesterol 92.6 Cholesterol/HDL Ratio 1.74 Date/Time Source Procedure Growth Status 11/27/17 15:30 Urine Random Urine Urine Culture - Preliminary IMMATURE GROWTH - REINCUBATE Resulted Result Diagram: 11/27/17 1230 11/28/17 0435 Imaging Last Impressions Chest X-Ray 11/27/17 1223 Signed Impressions: Service Date/Time: October 12:41 - CONCLUSION: No acute disease. Amrit Chirinos MD Assessment and Plan Problem List: (1) UTI (urinary tract infection) ICD Code: N39.0 - Urinary tract infection, site not specified Status: Acute (2) Alcohol use disorder ICD Code: F10.99 - Alcohol use, unspecified with unspecified alcohol-induced disorder Assessment and Plan Depression Main reason for admission Managed by Dr. Castro Will follow for medical reasons Urinary tract infection Start on Bactrim DS, 5-7 days Alcoholism No sign of withdrawal currently Will follow daily and monitor for any changes h/o GERD Protonix as prophylaxis h/o slow GI motility syndrome She requested Reglan and Zofran prn (home meds) Problem Qualifiers (1) UTI (urinary tract infection): Qualified Codes: N39.0 - Urinary tract infection, site not specified Evangelist Funes MD Nov 28, 2017 20:18
[2017-11-28] MEDS: ACETAMINOPHEN 325 MG TAB PO PRN (20:29)
[2017-11-28] MEDS: REMOVE OLD NICOTINE PATCH T-DERMAL SCH (20:30)
[2017-11-29] MEDS: ACETAMINOPHEN 325 MG TAB PO PRN ×2 (01:06→21:14)
[2017-11-29 06:00] VITALS: BP 156/90; PULSE 82; RESP 16; TEMP 98.1; O2SAT 98
[2017-11-29] MEDS: SERTRALINE HCL 50 MG TAB PO SCH (08:29)
[2017-11-29] MEDS: NICOTINE 21 MG/24 HR PATCH T-DERMAL SCH (08:29)
[2017-11-29] MEDS: PANTOPRAZOLE SOD 20 MG DELAYED RELEASE TAB PO SCH (08:29)
[2017-11-29] MEDS: ONDANSETRON ODT 4 MG TAB PO PRN (08:29)
[2017-11-29] MEDS: SULFAMETHOXAZOLE-TRIMETHOPRIM DS 800-160 MG TAB PO SCH ×2 (08:29→21:14)
--- NOTE | 2017-11-29 13:33 | HHI.PR ---
Subjective Remarks Follow-up visit polysubstance abuse, suicidal ideation, urinary tract infection. Patient seen and examined today lying in bed. Reports she is doing better. Urgency and dysuria has improved significantly. Denies fevers or chills, nausea, vomiting, diarrhea. Objective Vitals Vital Signs Date Time Temp Pulse Resp B/P (MAP) Pulse Ox O2 Delivery O2 Flow Rate FiO2 11/29/17 06:00 98.1 82 16 156/90 (112) 98 11/28/17 18:00 97.9 71 16 120/69 (86) 96 I/O 11/28/17 11/28/17 11/28/17 11/29/17 11/29/17 11/29/17 07:00 15:00 23:00 07:00 15:00 23:00 Intake Total 0 ml 240 ml Balance 0 ml 240 ml Intake Oral 0 ml 240 ml # Voids 1 Result Diagram: 11/27/17 1230 11/28/17 0435 Imaging Last Impressions Chest X-Ray 11/27/17 1223 Signed Impressions: Service Date/Time: October 12:41 - CONCLUSION: No acute disease. Amrit Chirinos MD Objective Remarks GENERAL: This is a well-nourished, well-developed patient, in no apparent distress. SKIN: Warm and dry. HEENT: Normocephalic. Pupils equal round and reactive. Nose without bleeding. Airway patent. NECK: Trachea midline. No JVD. Supple. CARDIOVASCULAR: Regular rate and rhythm without murmurs, gallops, or rubs. RESPIRATORY: Clear to auscultation. Breath sounds equal bilaterally. No wheezes , rales, or rhonchi. GASTROINTESTINAL: Abdomen soft, non-tender, nondistended. Bowel Sounds normoactive x4. MUSCULOSKELETAL: Extremities without clubbing, cyanosis, or edema. NEUROLOGICAL: Awake and alert. Oriented to place, person. Moves all extremities. Normal speech. A/P Problem List: (1) UTI (urinary tract infection) ICD Code: N39.0 - Urinary tract infection, site not specified Status: Acute (2) Alcohol use disorder ICD Code: F10.99 - Alcohol use, unspecified with unspecified alcohol-induced disorder Assessment and Plan Patient is a 57-year-old female who came into the hospital under Lafleur act for suicidal attempt. Patient is admitted to medical psych unit for further evaluation. Consulted for medical management. Suicidal attempt, depression - Managed by psychiatry team Urinary tract infection - Patient started on Bactrim. - States improvement with urgency Polysubstance abuse - [facility] protocol - Pantoprazole, add folic acid, multivitamin, thiamin DVT prop ambulatory. Problem Qualifiers (1) UTI (urinary tract infection): Qualified Codes: N39.0 - Urinary tract infection, site not specified Julián Canseco [facility] Nov 29, 2017 13:33
[2017-11-29 18:00] VITALS: BP 123/78; PULSE 77; RESP 17; TEMP 98.1; O2SAT 97
--- NOTE | 2017-11-29 20:07 | HHI.PYPN ---
Subjective Remarks Pt seen and discussed with staff. She remains depressed but states that she feels mood is starting to improve and she has not had SI thoughts this afternoon. She is tolerating medication without side effects. No SI/HI Mental Status Examination Appearance: Disheveled Consciousness: Alert Orientation: Person, Place, Date/Time Motor Activity: Normal gait Speech: Unremarkable Language: Adequate Fund of Knowledge: Adequate Attention and Concentration: Adequate Memory: Unremarkable Mood: Sad, Anxious Affect: Sad, Anxious Thought Process & Associations: Linear Thought Content: Appropriate Hallucination Type: None Delusion Type: None Suicidal Ideation: Yes (decreaesed) Suicidal Plan: No Suicidal Intention: No Homicidal Ideation: No Homicidal Plan: No Homicidal Intention: No Insight: Fair Judgment: Impulsive Results Labs Date/Time Source Procedure Growth Status 11/27/17 15:30 Urine Random Urine Urine Culture - Final 50-100,000 CFU/ML MIXED FARZAD... Complete Vitals/IOs Vital Signs Date Time Temp Pulse Resp B/P (MAP) Pulse Ox O2 Delivery O2 Flow Rate FiO2 11/29/17 18:00 98.1 77 17 123/78 (93) 97 11/27/17 17:31 Room Air 11/27/17 13:41 2.00 Intake and Output 11/29/17 11/29/17 11/30/17 08:00 16:00 00:00 Intake Total 480 ml 120 ml Balance 480 ml 120 ml Assessment & Plan Problem List: (1) Adjustment disorder with depressed mood ICD Codes: F43.21 - Adjustment disorder with depressed mood (2) Alcohol use disorder ICD Codes: F10.99 - Alcohol use, unspecified with unspecified alcohol-induced disorder Assessment & Plan Pt improving. Continue current tx plan. Estimated LOS: days Justification for Cont. Inpt. impairments in safety Macarena Jamil MD Nov 29, 2017 20:07
[2017-11-29] MEDS: REMOVE OLD NICOTINE PATCH T-DERMAL SCH (21:00)
[2017-11-30 06:00] VITALS: BP 119/74; PULSE 74; RESP 16; TEMP 97.8; O2SAT 96
[2017-11-30] MEDS: ONDANSETRON ODT 4 MG TAB PO PRN (06:29)
[2017-11-30] MEDS: SULFAMETHOXAZOLE-TRIMETHOPRIM DS 800-160 MG TAB PO SCH ×2 (08:36→20:50)
[2017-11-30] MEDS: THIAMINE HCL 100 MG TAB PO SCH (08:36)
[2017-11-30] MEDS: PANTOPRAZOLE SOD 20 MG DELAYED RELEASE TAB PO SCH (08:36)
[2017-11-30] MEDS: FOLIC ACID 1 MG TAB PO SCH (08:36)
[2017-11-30] MEDS: SERTRALINE HCL 50 MG TAB PO SCH (08:36)
[2017-11-30] MEDS: NICOTINE 21 MG/24 HR PATCH T-DERMAL SCH (08:37)
--- NOTE | 2017-11-30 12:22 | HHI.PYPN ---
Subjective Remarks Pt seen and discussed with staff. She reports that mood is improved and denies SI/HI. No medication side effects. She is engaging in future planning. Mental Status Examination Appearance: Disheveled Consciousness: Alert Orientation: Person, Place, Date/Time Motor Activity: Normal gait Speech: Unremarkable Language: Adequate Fund of Knowledge: Adequate Attention and Concentration: Adequate Memory: Unremarkable Mood: Anxious Affect: Anxious Thought Process & Associations: Linear Thought Content: Appropriate Hallucination Type: None Delusion Type: None Suicidal Ideation: No Suicidal Plan: No Suicidal Intention: No Homicidal Ideation: No Homicidal Plan: No Homicidal Intention: No Insight: Fair Judgment: Impulsive Results Labs Date/Time Source Procedure Growth Status 11/27/17 15:30 Urine Random Urine Urine Culture - Final 50-100,000 CFU/ML MIXED FARZAD... Complete Vitals/IOs Vital Signs Date Time Temp Pulse Resp B/P (MAP) Pulse Ox O2 Delivery O2 Flow Rate FiO2 11/30/17 06:00 97.8 74 16 119/74 (89) 96 11/27/17 17:31 Room Air 11/27/17 13:41 2.00 Intake and Output 11/30/17 11/30/17 12/01/17 08:00 16:00 00:00 Intake Total 0 ml 360 ml Balance 0 ml 360 ml Assessment & Plan Problem List: (1) Adjustment disorder with depressed mood ICD Codes: F43.21 - Adjustment disorder with depressed mood (2) Alcohol use disorder ICD Codes: F10.99 - Alcohol use, unspecified with unspecified alcohol-induced disorder Assessment & Plan PT improving. Continue current tx plan. Estimated LOS: days Justification for Cont. Inpt. risk of decompensation Macarena Jamil MD Nov 30, 2017 12:22
[2017-11-30] MEDS: ACETAMINOPHEN 325 MG TAB PO PRN ×2 (13:10→20:51)
[2017-11-30] MEDS: PHENAZOPYRIDINE HCL 100 MG TAB PO SCH ×2 (14:00→21:16)
--- NOTE | 2017-11-30 14:00 | HHI.PR ---
Subjective Remarks Follow-up visit polysubstance abuse, suicidal ideation, urinary tract infection. Patient seen and examined today lying in bed. Reports that these have urgency but dysuria is improved. Slight discomfort postvoid. Denies SOB/ dyspnea. Denies chest pain, palpitations, headaches, dizziness. Denies fevers, chills, n/v/d. Reports constipation. Objective Vitals Vital Signs Date Time Temp Pulse Resp B/P (MAP) Pulse Ox O2 Delivery O2 Flow Rate FiO2 11/30/17 06:00 97.8 74 16 119/74 (89) 96 11/29/17 18:00 98.1 77 17 123/78 (93) 97 I/O 11/29/17 11/29/17 11/29/17 11/30/17 11/30/17 11/30/17 07:00 15:00 23:00 07:00 15:00 23:00 Intake Total 480 ml 360 ml 0 ml 360 ml Balance 480 ml 360 ml 0 ml 360 ml Intake Oral 480 ml 360 ml 0 ml 360 ml # Voids 1 5 1 0 Result Diagram: 11/27/17 1230 11/28/17 0435 Imaging Last Impressions Chest X-Ray 11/27/17 1223 Signed Impressions: Service Date/Time: October 12:41 - CONCLUSION: No acute disease. Amrit Chirinos MD Objective Remarks GENERAL: This is a well-nourished, well-developed patient, in no apparent distress. SKIN: Warm and dry. HEENT: Normocephalic. Pupils equal round and reactive. Nose without bleeding. Airway patent. NECK: Trachea midline. No JVD. Supple. CARDIOVASCULAR: Regular rate and rhythm without murmurs, gallops, or rubs. RESPIRATORY: Clear to auscultation. Breath sounds equal bilaterally. No wheezes , rales, or rhonchi. GASTROINTESTINAL: Abdomen soft, non-tender, nondistended. Bowel Sounds normoactive x4. MUSCULOSKELETAL: Extremities without clubbing, cyanosis, or edema. NEUROLOGICAL: Awake and alert. Oriented to place, person. Moves all extremities. Normal speech. A/P Problem List: (1) UTI (urinary tract infection) ICD Code: N39.0 - Urinary tract infection, site not specified Status: Acute (2) Alcohol use disorder ICD Code: F10.99 - Alcohol use, unspecified with unspecified alcohol-induced disorder Assessment and Plan Patient is a 57-year-old female who came into the hospital under Lafleur act for suicidal attempt. Patient is admitted to medical psych unit for further evaluation. Consulted for medical management. Suicidal attempt, depression - Managed by psychiatry team Urinary tract infection - Continue Bactrim. - Start Pyridium 2 days - Encourage by mouth fluid hydration Polysubstance abuse - [facility] protocol - Pantoprazole, add folic acid, multivitamin, thiamine Constipation - MOM Nicolasa-Colace when necessary DVT prop ambulatory. Problem Qualifiers (1) UTI (urinary tract infection): Qualified Codes: N39.0 - Urinary tract infection, site not specified Julián Canseco Nov 30, 2017 14:00
[2017-11-30] MEDS ORDERED: DOCUSATE SODIUM 50 MG/SENNA 8.6 MG TAB PO PRN (14:30)
[2017-11-30 18:29] VITALS: BP 114/60; PULSE 65; RESP 16; TEMP 98.3; O2SAT 97
[2017-11-30] MEDS: REMOVE OLD NICOTINE PATCH T-DERMAL SCH (21:00)
[2017-12-01] MEDS: PHENAZOPYRIDINE HCL 100 MG TAB PO SCH ×3 (06:26→22:01)
[2017-12-01 06:32] VITALS: BP 106/70; PULSE 86; RESP 16; TEMP 97.8; O2SAT 97
[2017-12-01] MEDS: ACETAMINOPHEN 325 MG TAB PO PRN ×2 (06:42→22:06)
[2017-12-01] MEDS: PANTOPRAZOLE SOD 20 MG DELAYED RELEASE TAB PO SCH (08:30)
[2017-12-01] MEDS: THIAMINE HCL 100 MG TAB PO SCH (08:30)
[2017-12-01] MEDS: SERTRALINE HCL 50 MG TAB PO SCH (08:30)
[2017-12-01] MEDS: SULFAMETHOXAZOLE-TRIMETHOPRIM DS 800-160 MG TAB PO SCH ×2 (08:30→22:02)
[2017-12-01] MEDS: FOLIC ACID 1 MG TAB PO SCH (08:30)
[2017-12-01] MEDS: NICOTINE 21 MG/24 HR PATCH T-DERMAL SCH (08:30)
--- NOTE | 2017-12-01 08:47 | HHI.PR ---
Subjective Remarks Follow-up visit of 57-year-old female currently and medical psych unit with history of polysubstance abuse, and suicidal ideation. Medical team following patient due to urinary tract infection. Patient seen and examined sitting in her bed with nurse at bedside. She reports that she has increased her fluid intake and continues to have frequency along with the constant urge to urinate. Patient does urinate she does report an adequate amount of urine with voiding , denies dysuria, hematuria, urinary incontinence. She denies any suprapubic pain, urine leakage with sneezing, coughing, or laughter. She denies any fevers , chills, nausea, vomiting, or diarrhea. She reports that the Pyridium has not decreased her urinary frequency. Objective Vitals Vital Signs Date Time Temp Pulse Resp B/P (MAP) Pulse Ox O2 Delivery O2 Flow Rate FiO2 12/01/17 06:32 97.8 86 16 106/70 (82) 97 11/30/17 18:29 98.3 65 16 114/60 (78) 97 I/O 11/30/17 11/30/17 11/30/17 12/01/17 12/01/17 12/01/17 07:00 15:00 23:00 07:00 15:00 23:00 Intake Total 0 ml 360 ml 240 ml 240 ml Output Total 3 ml Balance 0 ml 360 ml 240 ml 237 ml Intake Oral 0 ml 360 ml 240 ml 240 ml Output Urine Total 3 ml # Voids 0 1 0 Result Diagram: 11/27/17 1230 11/28/17 0435 Imaging Last Impressions Chest X-Ray 11/27/17 1223 Signed Impressions: Service Date/Time: October 12:41 - CONCLUSION: No acute disease. Amrit Chirinos MD Objective Remarks GENERAL: This is a well-nourished, well-developed patient, in no apparent distress. SKIN: Warm and dry. HEENT: Normocephalic. Pupils equal round and reactive. Nose without bleeding. Airway patent. NECK: Trachea midline. CARDIOVASCULAR: Regular rate and rhythm without murmurs, gallops, or rubs. RESPIRATORY: Clear to auscultation. Breath sounds equal bilaterally. No wheezes , rales, or rhonchi. GASTROINTESTINAL: Abdomen soft, non-tender, nondistended, negative suprapubic tenderness with palpation. Bowel Sounds normoactive x4. MUSCULOSKELETAL: Extremities without clubbing, cyanosis, or edema. NEUROLOGICAL: Awake and alert. Oriented to place, person. Moves all extremities. Normal speech. A/P Problem List: (1) UTI (urinary tract infection) ICD Code: N39.0 - Urinary tract infection, site not specified Status: Acute (2) Alcohol use disorder ICD Code: F10.99 - Alcohol use, unspecified with unspecified alcohol-induced disorder Assessment and Plan Patient is a 57-year-old female who came into the hospital under Lafleur act for suicidal attempt. Patient is admitted to medical psych unit for further evaluation. Consulted for medical management. Suicidal attempt, depression - Managed by psychiatry team Urinary tract infection - UA positive with culture and sensitivity showing likely contaminated. Patient started on Bactrim on 11/28 due to symptoms. - Continue to have frequency. - Suspect frequency might be secondary to increase fluid intake, discussed with patient to drink regular amounts of fluids today to see how she does. - Post void bladder US done showing 44mls, no urinary retention to explain urgency. - Recheck tomorrow ?OAB consider oxybutynin if not improved. Polysubstance abuse - [facility] protocol - Pantoprazole, add folic acid, multivitamin, thiamin DVT prop ambulatory. Problem Qualifiers (1) UTI (urinary tract infection): Qualified Codes: N39.0 - Urinary tract infection, site not specified Prateek Rivera Dec 01, 2017 08:47
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
[2017-12-01] MEDS: hydrOXYzine HCL 25 MG TAB PO SCH ×2 (12:00→22:02)
[2017-12-01 18:00] VITALS: BP 109/65; PULSE 72; RESP 16; TEMP 98.5; O2SAT 95
[2017-12-01] MEDS: REMOVE OLD NICOTINE PATCH T-DERMAL SCH (21:00)
[2017-12-01] MEDS: traZODone HCL 50 MG TAB PO PRN (22:02)
[2017-12-02] MEDS: hydrOXYzine HCL 25 MG TAB PO SCH ×3 (04:00→21:12)
[2017-12-02] MEDS: PHENAZOPYRIDINE HCL 100 MG TAB PO SCH (05:59)
[2017-12-02 06:08] VITALS: BP 113/71; PULSE 82; RESP 18; TEMP 97.4; O2SAT 96
--- NOTE | 2017-12-02 08:20 | HHI.PR ---
Subjective Remarks Follow-up visit on UTI, patient reports that since yesterday when she has been drinking her normal amount of fluids her frequency has improved. Denies fever chills, dysuria, hematuria, incontinence. She is eating and drinking without any issues denies any nausea, vomiting, diarrhea. Patient states she would like to be discharged to a center where she received treatment for at least 30 days, she will be speaking to case management regarding this. Objective Vitals Vital Signs Date Time Temp Pulse Resp B/P (MAP) Pulse Ox O2 Delivery O2 Flow Rate FiO2 12/02/17 06:08 97.4 82 18 113/71 (85) 96 12/01/17 18:00 98.5 72 16 109/65 (80) 95 I/O 12/01/17 12/01/17 12/01/17 12/02/17 12/02/17 12/02/17 07:00 15:00 23:00 07:00 15:00 23:00 Intake Total 240 ml 240 ml 1960 ml Output Total 3 ml Balance 237 ml 240 ml 1960 ml Intake Oral 240 ml 240 ml 1960 ml Output Urine Total 3 ml # Voids 0 4 1 Result Diagram: 11/28/17 0435 Imaging Last Impressions Chest X-Ray 11/27/17 1223 Signed Impressions: Service Date/Time: October 12:41 - CONCLUSION: No acute disease. Amrit Chirinos MD Objective Remarks GENERAL: This is a well-nourished, well-developed patient, in no apparent distress. SKIN: Warm and dry. HEENT: Normocephalic. Pupils equal round and reactive. Nose without bleeding. Airway patent. NECK: Trachea midline. CARDIOVASCULAR: Regular rate and rhythm without murmurs, gallops, or rubs. RESPIRATORY: Clear to auscultation. Breath sounds equal bilaterally. No wheezes , rales, or rhonchi. GASTROINTESTINAL: Abdomen soft, non-tender, nondistended, negative suprapubic tenderness with palpation. Bowel Sounds normoactive x4. MUSCULOSKELETAL: Extremities without clubbing, cyanosis, or edema. NEUROLOGICAL: Awake and alert. Oriented to place, person. Moves all extremities. Normal speech. A/P Problem List: (1) UTI (urinary tract infection) ICD Code: N39.0 - Urinary tract infection, site not specified Status: Acute (2) Alcohol use disorder ICD Code: F10.99 - Alcohol use, unspecified with unspecified alcohol-induced disorder Assessment and Plan Patient is a 57-year-old female who came into the hospital under Lafleur act for suicidal attempt. Patient is admitted to medical psych unit for further evaluation. Consulted for medical management. Suicidal attempt, depression - Managed by psychiatry team Urinary tract infection - UA positive with culture and sensitivity showing likely contaminated. Patient started on Bactrim on 11/28 due to symptoms and date placed for 12/03. - Frequency has improved since she has been drinking normal amounts of fluids. - Post void bladder US negative for retention. Polysubstance abuse - [facility] protocol - Pantoprazole, add folic acid, multivitamin, thiamin DVT prop ambulatory. Will sign off, please reconsult if needed. Problem Qualifiers (1) UTI (urinary tract infection): Qualified Codes: N39.0 - Urinary tract infection, site not specified Prateek Rivera Dec 02, 2017 08:20
[2017-12-02] MEDS: SULFAMETHOXAZOLE-TRIMETHOPRIM DS 800-160 MG TAB PO SCH ×2 (09:48→21:12)
[2017-12-02] MEDS: THIAMINE HCL 100 MG TAB PO SCH (09:48)
[2017-12-02] MEDS: FOLIC ACID 1 MG TAB PO SCH (09:48)
[2017-12-02] MEDS: NALTREXONE HCL 50 MG TAB PO SCH (09:48)
[2017-12-02] MEDS: PANTOPRAZOLE SOD 20 MG DELAYED RELEASE TAB PO SCH (09:49)
[2017-12-02] MEDS: SERTRALINE HCL 100 MG TAB PO SCH (09:49)
[2017-12-02] MEDS: NICOTINE 21 MG/24 HR PATCH T-DERMAL SCH (09:50)
--- NOTE | 2017-12-02 10:43 | HHI.PYPN ---
Subjective Remarks Patient seen for follow-up, chart reviewed. Discussion she staff reported the patient to comply with medications and cooperative with staff. Patient found lying in hospital bed, cooperative stating that she has feeling "better", reports having been visited by her family over the weekend and that it the visit was "really positive". Patient states that she feels supported by her father her sister who was sister in her discharge plan. She also states that her recent discord with her second continues to be present but has not spoken to him since her admission. She also mentions that her father is planning to put her son on a flight back to [place] able to return to live with her. Patient states that she is no longer feeling hopeless and but continues to have some depressed mood but no longer having any suicidal ideations. Patient also reports that her anxiety is also have been decreasing. Patient plans on engaging in the inpatient rehabilitation program. Review of Systems Except as stated in HPI: all other systems reviewed are Neg Mental Status Examination Appearance: Appropriate Consciousness: Alert Orientation: Person, Place, Date/Time Motor Activity: Normal gait Speech: Unremarkable Language: Adequate Fund of Knowledge: Adequate Attention and Concentration: Adequate Memory: Unremarkable Mood: Appropriate Affect: Anxious Thought Process & Associations: Intact, Goal directed, Linear Thought Content: Appropriate Hallucination Type: None Delusion Type: None Suicidal Ideation: No Suicidal Plan: No Suicidal Intention: No Homicidal Ideation: No Homicidal Plan: No Homicidal Intention: No Insight: Fair Judgment: Impulsive Results Labs Labs reviewed Date/Time Source Procedure Growth Status 11/27/17 15:30 Urine Random Urine Urine Culture - Final 50-100,000 CFU/ML MIXED FARZAD... Complete Vitals/IOs Vital Signs Date Time Temp Pulse Resp B/P (MAP) Pulse Ox O2 Delivery O2 Flow Rate FiO2 12/02/17 06:08 97.4 82 18 113/71 (85) 96 Intake and Output 12/02/17 12/02/17 12/03/17 08:00 16:00 00:00 Intake Total 240 ml Balance 240 ml Assessment & Plan Problem List: (1) Adjustment disorder with depressed mood ICD Codes: F43.21 - Adjustment disorder with depressed mood (2) Alcohol use disorder ICD Codes: F10.99 - Alcohol use, unspecified with unspecified alcohol-induced disorder Assessment & Plan Patient at this time continues to have some depressed mood but no longer feeling helpless or having suicidal ideations. Patient currently with good family support at this time and now considering to engage in inpatient rehabilitation program will be continued to be explored at this time so that patient can transition into this intervention as she is currently a high risk for relapse. Continue recommendations as per primary medical team. Discharge planning in progress Justification for Cont. Inpt. At risk for further decompensation at lower level of care Discharge Planning Patient would go to inpatient rehabilitation program Gamaliel Castro MD Dec 02, 2017 10:43
[2017-12-02 19:14] VITALS: BP 117/84; PULSE 84; RESP 17; TEMP 97.4; O2SAT 98
[2017-12-02] MEDS: REMOVE OLD NICOTINE PATCH T-DERMAL SCH (21:00)
[2017-12-02] MEDS: traZODone HCL 50 MG TAB PO PRN (21:14)
[2017-12-03] MEDS: hydrOXYzine HCL 25 MG TAB PO SCH (05:12)
[2017-12-03 06:08] VITALS: BP 109/69; PULSE 75; RESP 16; TEMP 97.8; O2SAT 96
[2017-12-03] MEDS ORDERED: PANT20 PO (07:42)
[2017-12-03] MEDS ORDERED: ZOLO100T PO (07:42)
[2017-12-03] MEDS ORDERED: SULF1TAB23 PO (07:42)
[2017-12-03] MEDS ORDERED: NALT50TA3 PO (07:42)
[2017-12-03] MEDS ORDERED: HYDR-3133 PO (07:42)
[2017-12-03] MEDS ORDERED: THIA100 PO (07:42)
[2017-12-03] MEDS ORDERED: FOLI1TAB6 PO (07:42)
[2017-12-03] MEDS: NALTREXONE HCL 50 MG TAB PO SCH (08:10)
[2017-12-03] MEDS: SULFAMETHOXAZOLE-TRIMETHOPRIM DS 800-160 MG TAB PO SCH (08:10)
[2017-12-03] MEDS: PANTOPRAZOLE SOD 20 MG DELAYED RELEASE TAB PO SCH (08:10)
[2017-12-03] MEDS: SERTRALINE HCL 100 MG TAB PO SCH (08:10)
[2017-12-03] MEDS: FOLIC ACID 1 MG TAB PO SCH (08:10)
[2017-12-03] MEDS: NICOTINE 21 MG/24 HR PATCH T-DERMAL SCH (08:11)
[2017-12-03] MEDS: THIAMINE HCL 100 MG TAB PO SCH (08:11)
--- NOTE | 2017-12-03 21:23 | HHI.DS ---
Psychiatry Discharge Summary Inpatient Psychiatric care?: Yes Advance Directive: No Reason Not Provided: DECLINED Mental Health AdvanceDirective: No Health Care Proxy: No Admission Admission Date Nov 27, 2017 at 21:29 Admission Diagnosis: (1) Adjustment disorder with depressed mood ICD Code: F43.21 - Adjustment disorder with depressed mood (2) Alcohol use disorder ICD Code: F10.99 - Alcohol use, unspecified with unspecified alcohol-induced disorder Brief History Patient is a 57-year-old woman, , domiciled with son, recently unemployed, with past psychiatric history of depression, no prior psychiatric hospitalizations, prior suicide attempt or self-injurious behavior, with alcohol use disorder with history of daily drinking since the age of [age] years old, who was brought in under [employer] [facility] for recent suicide attempt via cutting wrists with a knife and using heroin along with alcohol use in the context of worsening depression and recent psychosocial stressors. Patient was found sitting in hospital bed, cooperative with interview. Patient states that she has been under a lot of stress recently have included losing her job recently after calling in sick several times, having relationship discord with her son who is currently living with her and is refusing to leave her home, financial difficulties and continued alcohol use. Patient reports having decreased sleep lately, with urges and appetite, energy or concentration but reports feeling depressed for the past couple of weeks along with feeling helpless. Patient denies feeling helpless but also is having feelings of guilt "what I make my father to go through". She reports having had suicidal ideation recently reported that a few days ago she had tried to cut herself with a knife on her left wrist and ended up aborting the suicide and taxing her father when she had been trying to do. She also mentions that prior to her hospitalization she had used heroin for the first time along with alcohol use and attempt to end her life. Patient also reports having difficulty with her son which she states she is mostly at home drunk and is refusing to leave her home. Currently she states feeling "confused and scared", denies any suicidal ideations at this time denies any HI, AVH or delusions. Family psychiatric history: Sister with anxiety, no suicides in the family Past psychiatric history: Reports previous psychiatric diagnoses of depression, no prior psychiatric hospitalizations, suicide attempts or self-injurious behavior. Patient denies any history of abuse. Patient reports previous medication trials include Zoloft in the past couple of years last time use was more than a year ago. Substance use history: Alcohol use since age of [age] years old, drinking daily more than one bottle of wine last time she drank was prior hospitalizations which she drank on. Patient reports having previous rehabilitation programs 2-1 /2 years ago as well as prior detox. Patient reports having used heroin for the first time prior to her admission this time. Patient denies use of any other illicit drugs. Past medical history,: Denies Allergies: NKDA Social history: having 2 adult children, domiciled with son, reports having lost her job recently, highest education is 12th grade. No history, no access to firearms. No specific adventist affiliation. Legal history: Reports being arrested for battery 1 week ago. Tobacco Use In Past 30 Days: 5 or More Cigarettes/Day Alcohol Use: 4 or More Times Per Week Hospital Course Patient is a 57-year-old woman, , domiciled with son, recently unemployed, with past psychiatric history of depression, no prior psychiatric hospitalizations, prior suicide attempt or self-injurious behavior, with alcohol use disorder with history of daily drinking since the age of [age] years old, who was brought in under [facility] for recent suicide attempt via cutting wrists with a knife and using heroin along with alcohol use in the context of worsening depression and recent psychosocial stressors which she was transferred to the inpatient psychiatry/medical unit for further evaluation and management. Patient started on sertraline 50mg and titrated up to 100mg PO daily, hydroxyzine 25mg PO 8hrs and naloxone 50mg PO daily which patient tolerated well with good effect. Patient was observed to have improvement of mood with decrease in depressive symptoms, no longer endorsing suicidal ideations, noted to be future oriented and goal directed. Patient was noted to have been compliant with treatment, calm and cooperative with staff. Upon discharge patient stated that she was feeling "good", denied any depressive, manic or psychotic symptoms, denied any SI, HI or delusions. Patient counseled on abstinence from alcohol or substance use and agreed to engage in sober living residential facility. Patient agreed to continue medication regimen and outpatient follow up for continuity of care. Patient advised to call 911 or go nearest ED in case of emergency. Patient agrees with plan. Results Blood Pressure 109 / 69 Vital Signs Date Time Temp Pulse Resp B/P (MAP) Pulse Ox O2 Delivery O2 Flow Rate FiO2 12/03/17 06:08 97.8 75 16 109/69 (82) 96 Laboratory Results Test 11/28/17 04:35 Cholesterol Level 162 MG/DL (120-200) HDL Cholesterol 92.6 MG/DL (40.0-60.0) Hemoglobin A1c 5.7 % (4.3-6.0) LDL Cholesterol 57 MG/DL (0-99) Triglycerides Level 61 MG/DL (42-150) Summary of Procedures None Imaging Last Impressions Chest X-Ray 11/27/17 1223 Signed Impressions: Service Date/Time: October 12:41 - CONCLUSION: No acute disease. Amrit Chirinos MD Pending results at discharge: No Medications # of Antipsychotic meds at D/C: 0 Approp Antipsych med options 1 - Minimum of three failed multiple trials of monotherapy. 2 - Documented plan to taper to monotherapy due to previous use of multiple meds OR cross-taper in progress at D/C. 3 - Documentation of augmentation of Clozapine. 4 - Justification other than those listed in allowable values 1-3, document here : Discharge Discharge Date: Dec 03, 2017 Discharge Diagnosis: (1) Adjustment disorder with depressed mood ICD Code: F43.21 - Adjustment disorder with depressed mood (2) Alcohol use disorder ICD Code: F10.99 - Alcohol use, unspecified with unspecified alcohol-induced disorder Pt Condition on Discharge: Stable Discharge Disposition: Discharge Home Discharge Instructions Diet Instructions: Heart Healthy Diet Activities you can perform: Regular-No Restrictions Scheduled Appointment: Nick Herrera Appointment Date: Dec 04, 2017 Appointment Time: 07:30am Discharge Time > 30 minutes Mental Status Examination Appearance: Appropriate Consciousness: Alert Orientation: Person, Place, Date/Time Motor Activity: Normal gait Speech: Unremarkable Language: Adequate Fund of Knowledge: Adequate Attention and Concentration: Adequate Memory: Unremarkable Mood: Appropriate Affect: Appropriate Thought Process & Associations: Intact, Goal directed, Linear Thought Content: Appropriate Hallucination Type: None Delusion Type: None Suicidal Ideation: No Suicidal Plan: No Suicidal Intention: No Homicidal Ideation: No Homicidal Plan: No Homicidal Intention: No Insight: Fair Judgment: Impulsive Discharge/Advance Care Plan Health Problems: (1) Adjustment disorder with depressed mood (2) Alcohol use disorder Goals to promote your health * To prevent worsening of your condition and complications * To maintain your health at the optimal level Directions to meet your goals Take your medications as prescribed Follow your dietary instruction Follow activity as directed Keep your appointments as scheduled Take your immunizations and boosters as scheduled If your symptoms worsen call your PCP, if no PCP go to Urgent Care Center or Emergency Room For 23/06 questions related to your inpatient stay or results of tests pending at discharge, please contact Dr. Gamaliel Castro at Smoking is Dangerous to Your Health. Avoid second hand smoking Gamaliel Castro MD Dec 03, 2017 21:23
== END 2017-12-03 12:30 | disposition home or self-care (01) | DRG 881 ==
LOC: NEPC 12:12 → NEDA 21:29 → H4EA 21:52
PROVIDERS: ADMIT Student in an Organized Health Care Education/Training Program; ATTEND Student in an Organized Health Care Education/Training Program
DX: F43.21 Adjustment disorder with depressed mood (principal); F10.99 Alcohol use, unspecified with unspecified alcohol-induced disorder; N39.0 Urinary tract infection, site not specified; K21.9 Gastro-esophageal reflux disease without esophagitis; K59.00 Constipation, unspecified
CPT/HCPCS: 71010; 80048; 80053; 80061; 80307; 81001; 83036; 85025; 85610; 85730; 87086; 90471; 90714; 96361; 96374; J2310; J7030